=== PATIENT | female | born 1940 | race Caucasian/White ===

== ENCOUNTER → 2020-12-07 17:27 | Outpatient (CLI) | payer MEDICARE, SELFPAY ==
[2020-12-07 18:09] LABS: Basophils # 0.1 K/mm3 (0-0.2); Basophils % 0.6 % (0.1-2.0); Eosinophils # 0.2 K/mm3 (0.0-0.4); Eosinophils % 1.9 % (0.1-12.0); Hematocrit 38.3 % (37.0-47.0); Hemoglobin 12.4 g/dL (12.2-16.2); Lymphocytes # 2.9 K/mm3 (0.7-4.5); Lymphocytes % 35.1 % (10-50); Mean Corpuscular HGB Conc 32.3 g/dL (31.8-35.4); Mean Corpuscular Hemoglobin 30.4 pg (27.0-31.2); Mean Corpuscular Volume 94.3 fl (81-99); Mean Platelet Volume 8.2 fl (7.4-10.4); Monocytes # 0.5 K/mm3 (0.1-1.0); Monocytes % 6.5 % (1.7-9.3); Neutrophils # 4.6 K/mm3 (1.8-7.8); Neutrophils % 55.9 % (37.0-80.0); Platelet Count 252 K/mm3 (142-424); Red Blood Count 4.06 M/mm3 (4.20-5.40); White Blood Count 8.3 K/mm3 (4.8-10.8)
[2020-12-07 19:04] LABS: Chloride 99 mmol/L (98-107); Potassium 4.6 mmoL/L (3.5-5.1); Sodium 136 mmol/L (136-145)
[2020-12-07 19:06] LABS: Blood Urea Nitrogen 32 mg/dl (7-17); Estimated Glomerular Filt Rate 60 ml/min (>60); GFR (African American) 73 ML/MIN (>60)
[2020-12-07 19:07] LABS: Alanine Aminotransferase 19 U/L (12-78); Albumin Level 4.3 g/dl (3.5-5.0); Albumin/Globulin Ratio 1.6 (1.1-1.8); Alkaline Phosphatase 79 U/L (38-126); Anion Gap 12.6 mEq/L (5-15); Aspartate Amino Transferase 25 U/L (14-36); Bilirubin,Total 0.5 mg/dl (0.2-1.3); Carbon Dioxide 29 mmol/L (22.0-30.0); Chol/HDL Ratio 5.1 (1-3.5); Cholesterol 210 mg/dl (140-200); Globulin 2.7 g/dL (1.3-3.2); Glucose 97 mg/dl (74-100); HDL Cholesterol 41 mg/dl (40-60); Triglycerides 170 mg/dl (30-150); VLDL Cholesterol 34 mg/dL (0-40)
[2020-12-07 19:17] LABS: NT Pro Brain Natriuretic Pep. 177 pg/mL (0-450)
[2020-12-07 19:18] LABS: Direct LDL Cholesterol 128.73 mg/dL (100-129)
[2020-12-07 19:24] LABS: T4 (Thyroxine) 6.5 ug/dl (5.53-11.0)
[2020-12-07 19:38] LABS: Thyroid Stimulating Hormone 2.82 uIU/mL (0.465-4.68)
== END ==
PROVIDERS: Visit Provider Family Medicine
DX: I10 Essential (primary) hypertension (principal); I50.9 Heart failure, unspecified; C44.509 Unspecified malignant neoplasm of skin of other part of trunk; R60.9 Edema, unspecified
CPT/HCPCS: 80053; 80061; 83880; 84436; 84443; 85025